=== PATIENT | female | born 1935 | race Asian ===

== ENCOUNTER 2021-04-11 11:11 | Observation (INO) ==
[2021-04-11 12:10] LABS: Hematocrit 40 % (35-47); Hemoglobin 13.6 g/dL (12.0-16.0); Mean Corpuscular HGB Conc 34 g/dL (31-36); Mean Corpuscular Hemoglobin 32 pg (27-31); Mean Corpuscular Volume 95 fL (80-97); Mean Platelet Volume 7.8 fL (7.4-10.4); Platelet Count 249 10^3/uL (150-450); Red Blood Count 4.23 10^6 /uL (3.70-4.87); Red Cell Distribution Width 13 % (10-15); White Blood Count 12.7 10^3/uL (3.5-10.8)
[2021-04-11 12:16] LABS: ABS Basophils 0.1 10^3/ul (0-0.2); ABS Eosinophils 0.1 10^3/ul (0-0.6); ABS Lymphocytes 1.9 10^3/ul (1.0-4.8); ABS Monocytes 1.6 10^3/ul (0-0.8); ABS Neutrophils 9.1 10^3/ul (1.5-7.7); Eosinophil % 0.7 %; Lymphocyte % 14.9 %
[2021-04-11 12:19] LABS: Albumin 3.8 g/dL (3.2-5.2); Anion Gap 8 mmol/L (2-11); CO2 Carbon Dioxide 24 mmol/L (22-32); Calcium 9.6 mg/dL (8.6-10.3); Chloride 104 mmol/L (101-111); Potassium 4.3 mmol/L (3.5-5.0); Sodium 136 mmol/L (135-145)
[2021-04-11 12:24] LABS: ALT 11 U/L (7-52); AST 16 U/L (13-39); Albumin/Globulin Ratio 1.1 (1-3); Alkaline Phosphatase 123 U/L (35-149); Blood Urea Nitrogen 22 mg/dL (6-24); Globulin 3.6 g/dL (2-4); Glucose 207 mg/dL (70-100); Total Protein 7.4 g/dL (6.4-8.9); eGFR CKD-EPI 50.4 (>60)
[2021-04-11 13:31] LABS: Alcohol, S < 13 mg/dL (<13)
[2021-04-11 13:47] LABS: TSH Ultra Thyroid Stim Horm 1.33 mcIU/mL (0.34-5.60)
[2021-04-11 14:05] LABS: Urine Appearance Cloudy; Urine Bilirubin Negative (Negative); Urine Blood Negative (Negative); Urine Color Yellow; Urine Glucose Negative (Negative); Urine Ketones Negative (Negative); Urine Nitrite Negative (Negative); Urine Protein Negative (Negative); Urine Urobilinogen Negative (Negative)
[2021-04-11] MEDS: Potassium Chlor 10 meq TAB PO SCH (16:42)
[2021-04-11] MEDS: Enoxaparin 40 MG/0.4 ML SYR SUBCUT SCH (18:21)
[2021-04-11] MEDS: Lactated Ringers 1000 ml BAG 1,000 ML IV ONE (19:06)
[2021-04-12 04:22] LABS: Hematocrit 37 % (35-47); Hemoglobin 12.4 g/dL (12.0-16.0); Mean Corpuscular HGB Conc 34 g/dL (31-36); Mean Corpuscular Hemoglobin 32 pg (27-31); Mean Corpuscular Volume 95 fL (80-97); Platelet Count 252 10^3/uL (150-450); Red Blood Count 3.92 10^6 /uL (3.70-4.87); Red Cell Distribution Width 13 % (10-15); White Blood Count 12.1 10^3/uL (3.5-10.8)
[2021-04-12 04:29] LABS: ABS Basophils 0.1 10^3/ul (0-0.2); ABS Eosinophils 0.3 10^3/ul (0-0.6); ABS Lymphocytes 2.8 10^3/ul (1.0-4.8); ABS Monocytes 1.8 10^3/ul (0-0.8); ABS Neutrophils 7.1 10^3/ul (1.5-7.7); Eosinophil % 2.3 %
[2021-04-12 04:41] LABS: HDL Cholesterol 33.2 mg/dL; Magnesium 1.8 mg/dL (1.9-2.7); Potassium 3.8 mmol/L (3.5-5.0)
[2021-04-12] MEDS ORDERED: Magnesium Sulfate IV 1GM/100ML 1 GM/100 ML BAG IV ONE (09:00)
[2021-04-12] MEDS ORDERED: Senna TAB 8.6 mg TAB PO ONE (10:08)
[2021-04-12] MEDS ORDERED: Polyethylene Glycol 3350 17 GM PACKET PO PRN (10:08)
[2021-04-12 10:09] VITALS: BP 111/67
[2021-04-12] MEDS ORDERED: Senna TAB 8.6 mg TAB PO PRN (10:09)
[2021-04-12] MEDS: Potassium Chlor 10 meq TAB PO SCH (10:15)
[2021-04-12] MEDS ORDERED: Lactated Ringers 500 ml BAG 500 ML IV SCH (11:00)
[2021-04-12] MEDS ORDERED: Polyethylene Glycol 3350 17 GM PACKET PO SCH (11:00)
[2021-04-12] MEDS ORDERED: Cyanocobalamin INJ 1,000 MCG/ML VIAL 1 ML VIAL IM ONE (11:24)
[2021-04-12] MEDS: Lactated Ringers 1000 ml BAG 1,000 ML IV ONE (13:34)
[2021-04-12] MEDS: Enoxaparin 40 MG/0.4 ML SYR SUBCUT SCH (15:25)
== END 2021-04-12 17:15 | disposition home or self-care (01) ==
LOC: ED 11:11 → EDHOLD 11:11 → MEDTELE 16:52
PROVIDERS: ADMIT Hospitalist; ATTEND Hospitalist

== ENCOUNTER 2021-04-14 08:31 | Observation (INO) ==
[2021-04-14] MEDS ORDERED: Lactated Ringers 1000 ml BAG IV.FLUID IV ONE (09:27)
[2021-04-14 10:13] LABS: Hematocrit 36 % (35-47); Hemoglobin 11.7 g/dL (12.0-16.0); Mean Corpuscular HGB Conc 33 g/dL (31-36); Mean Corpuscular Hemoglobin 31 pg (27-31); Mean Corpuscular Volume 96 fL (80-97); Platelet Count 255 10^3/uL (150-450); Red Blood Count 3.73 10^6 /uL (3.70-4.87); Red Cell Distribution Width 13 % (10-15); White Blood Count 10.9 10^3/uL (3.5-10.8)
[2021-04-14 10:30] LABS: Activated Partial Thrombo Time 29.7 seconds (26.0-38.0); INR 1.2 (0.86-1.15)
[2021-04-14 10:38] LABS: Albumin 3.2 g/dL (3.2-5.2); Calcium 8.2 mg/dL (8.6-10.3); Globulin 3.1 g/dL (2-4); Potassium 3.9 mmol/L (3.5-5.0); Total Protein 6.3 g/dL (6.4-8.9); eGFR CKD-EPI 55.2 (>60)
[2021-04-14 10:40] LABS: ABS Basophils 0.1 10^3/ul (0-0.2); ABS Eosinophils 0.3 10^3/ul (0-0.6); ABS Lymphocytes 1.5 10^3/ul (1.0-4.8); ABS Monocytes 1.9 10^3/ul (0-0.8); ABS Neutrophils 7.2 10^3/ul (1.5-7.7); Eosinophil % 2.7 %; Lymphocyte % 13.7 %; Nucleated Red Blood Cells % 0.1
[2021-04-14 12:09] LABS: Urine Appearance Clear; Urine Bilirubin Negative (Negative); Urine Blood Negative (Negative); Urine Color Yellow; Urine Glucose Negative (Negative); Urine Ketones Negative (Negative); Urine Nitrite Negative (Negative); Urine Protein Negative (Negative); Urine Specific Gravity 1.006 (1.002-1.030); Urine Urobilinogen Positive (Negative)
[2021-04-14] MEDS ORDERED: Enoxaparin 40 MG/0.4 ML SYR SUBCUT SCH (13:00)
[2021-04-14 13:38] LABS: TSH Ultra Thyroid Stim Horm 1.55 mcIU/mL (0.34-5.60)
[2021-04-14] MEDS ORDERED: Lactated Ringers 1000 ml BAG 1,000 ML IV SCH (15:00)
[2021-04-14] MEDS: Heparin 5000 UNITS/ML 1 mL VIAL SUBCUT SCH (15:27)
[2021-04-14] MEDS: Lactated Ringers 1000 ml BAG 1,000 ML IV SCH (19:47)
[2021-04-15] MEDS: Heparin 5000 UNITS/ML 1 mL VIAL SUBCUT SCH ×3 (01:19→23:43)
[2021-04-15 07:57] LABS: ABS Basophils 0.1 10^3/ul (0-0.2); ABS Eosinophils 0.3 10^3/ul (0-0.6); ABS Lymphocytes 1.9 10^3/ul (1.0-4.8); ABS Monocytes 1.3 10^3/ul (0-0.8); ABS Neutrophils 5.5 10^3/ul (1.5-7.7); Eosinophil % 3.8 %; Hematocrit 32 % (35-47); Hemoglobin 10.8 g/dL (12.0-16.0); Lymphocyte % 20.9 %; Mean Corpuscular HGB Conc 33 g/dL (31-36); Mean Corpuscular Hemoglobin 32 pg (27-31); Mean Corpuscular Volume 95 fL (80-97); Nucleated Red Blood Cells % 0.1; Platelet Count 270 10^3/uL (150-450); Red Blood Count 3.39 10^6 /uL (3.70-4.87); Red Cell Distribution Width 12 % (10-15); White Blood Count 9.2 10^3/uL (3.5-10.8)
[2021-04-15 08:14] LABS: Blood Urea Nitrogen 11 mg/dL (6-24); CO2 Carbon Dioxide 20 mmol/L (22-32); Calcium 7.1 mg/dL (8.6-10.3); Chloride 110 mmol/L (101-111); Glucose 65 mg/dL (70-100); Sodium 138 mmol/L (135-145); eGFR CKD-EPI 90.1 (>60)
[2021-04-15 09:28] LABS: Anion Gap 8 mmol/L (2-11)
[2021-04-15] MEDS ORDERED: Perflutren Lipid Microsphere 3 ML VIAL ONE (10:04)
[2021-04-15] MEDS: Lactated Ringers 1000 ml BAG 1,000 ML IV SCH (11:47)
[2021-04-15 13:11] LABS: Potassium Redraw 3.6 mmol/L (3.5-5.0)
[2021-04-15 21:11] LABS: C Reactive Protein 83.23 mg/L (<8.01)
[2021-04-16 05:28] LABS: ABS Basophils 0.1 10^3/ul (0-0.2); ABS Eosinophils 0.3 10^3/ul (0-0.6); ABS Lymphocytes 1.9 10^3/ul (1.0-4.8); ABS Monocytes 1.5 10^3/ul (0-0.8); ABS Neutrophils 6.8 10^3/ul (1.5-7.7); Hematocrit 34 % (35-47); Hemoglobin 11.6 g/dL (12.0-16.0); Mean Corpuscular HGB Conc 34 g/dL (31-36); Mean Corpuscular Hemoglobin 32 pg (27-31); Mean Corpuscular Volume 94 fL (80-97); Mean Platelet Volume 7.9 fL (7.4-10.4); Platelet Count 329 10^3/uL (150-450); Red Blood Count 3.59 10^6 /uL (3.70-4.87); Red Cell Distribution Width 12 % (10-15); White Blood Count 10.5 10^3/uL (3.5-10.8)
[2021-04-16 05:39] LABS: Calcium 8.8 mg/dL (8.6-10.3); Magnesium 1.9 mg/dL (1.9-2.7); Potassium 3.6 mmol/L (3.5-5.0)
[2021-04-16 05:45] LABS: eGFR CKD-EPI 77.7 (>60)
[2021-04-16 11:05] VITALS: BP 116/70
[2021-04-16] MEDS: Heparin 5000 UNITS/ML 1 mL VIAL SUBCUT SCH (12:06)
== END 2021-04-16 13:45 | disposition home or self-care (01) ==
LOC: EDHOLD 08:31 → ED 08:31 → EDHOLD 04-15 11:20 → MEDTELE 04-15 11:30
PROVIDERS: ADMIT Hospitalist; ATTEND Hospitalist

== ENCOUNTER 2024-04-28 09:17 | Observation (INO) ==
[2024-04-28 09:56] LABS: ABS Basophils 0.1 10^3/uL (0.0-0.1); ABS Eosinophils 0.4 10^3/uL (0.0-0.5); ABS Lymphocytes 2.1 10^3/uL (1.0-4.8); ABS Monocytes 1.4 10^3/uL (0.0-0.9); ABS Neutrophils 7.7 10^3/uL (1.5-7.6); Eosinophil % 3.2 %; Hematocrit 42.8 % (35-45); Hemoglobin 14.2 g/dL (11.5-14.3); Lymphocyte % 18.3 %; Mean Corpuscular Hemoglobin 32.4 pg (27-33); Mean Corpuscular Hgb Conc 33.2 g/dL (31-36); Mean Corpuscular Volume 97.4 fL (80-97); Mean Platelet Volume 8.1 fL (7.5-11.2); Platelet Count 260 10^3/uL (150-450); Red Cell Distribution Width 13.1 % (12-17); White Blood Count 11.7 10^3/uL (3.8-11.8)
[2024-04-28] MEDS: Lactated Ringers 1000 ml BAG 1,000 ML IV ONE (10:02)
[2024-04-28 10:16] LABS: Urine Appearance Extra Turbid; Urine Bilirubin Negative (Negative); Urine Blood 2+ (Negative); Urine Glucose Negative (Negative); Urine Ketones Negative (Negative); Urine Nitrite 2+ (Negative); Urine Protein 1+ (>=30 mg/dL) (Negative); Urine Urobilinogen 1+ (Negative)
[2024-04-28 10:19] LABS: Urine Bacteria 1+ /HPF (Absent); Urine Color Dark-Yellow; Urine Red Blood Cell 3+(>10/hpf) /HPF (0-Trace); Urine White Blood Cell 3+(>20/hpf) /HPF (0-Trace)
[2024-04-28 10:21] LABS: High Sens Troponin Baseline 3 pg/mL (<15)
[2024-04-28 11:03] LABS: ALT 40 U/L (7-52); Albumin 3.8 g/dL (3.5-5.7); Albumin/Globulin Ratio 1.2 (1-3); Alkaline Phosphatase 127 U/L (35-149); Anion Gap 9 mmol/L (2-16); Blood Urea Nitrogen 20 mg/dL (6-24); C Reactive Protein 22.15 mg/L (<8.01); CO2 Carbon Dioxide 24 mmol/L (22-32); Calcium 8.6 mg/dL (8.6-10.3); Chloride 102 mmol/L (101-111); Globulin 3.3 g/dL (2-4); Glucose 138 mg/dL (70-100); Sodium 135 mmol/L (135-145); Total Bilirubin 1.1 mg/dL (0.2-1.0); Total Protein 7.1 g/dL (6.4-8.9); eGFR CKD-EPI 54.9 (>60)
[2024-04-28 11:38] LABS: Activated Partial Thrombo Time 31.2 seconds (26.0-38.0); INR 1.04 (0.85-1.14)
[2024-04-28 12:38] LABS: Potassium Redraw 4.1 mmol/L (3.5-5.0)
[2024-04-28] MEDS: Iodixanol 320 (CONTRAST) 100 ML SDV IV ONE (12:40)
[2024-04-28] MEDS: cefTRIAXone 2 gm/50 mL D5W 2 GM/50 ML BAG IV ONE (12:49)
[2024-04-28] MEDS: Lactated Ringers 1000 ml BAG 500 ML IV ONE (17:53)
[2024-04-28] MEDS: Enoxaparin 40 MG/0.4 ML SYR SUBCUT SCH (19:18)
[2024-04-28] MEDS: Senna TAB 8.6 mg TAB PO SCH (21:41)
[2024-04-29 06:18] LABS: ABS Eosinophils 0.5 10^3/uL (0.0-0.5); ABS Lymphocytes 1.9 10^3/uL (1.0-4.8); ABS Monocytes 0.9 10^3/uL (0.0-0.9); ABS Neutrophils 5.5 10^3/uL (1.5-7.6); Eosinophil % 5.6 %; Hematocrit 37.2 % (35-45); Hemoglobin 12.3 g/dL (11.5-14.3); Lymphocyte % 21.2 %; Mean Corpuscular Hemoglobin 32.2 pg (27-33); Mean Corpuscular Hgb Conc 33.2 g/dL (31-36); Mean Corpuscular Volume 97.1 fL (80-97); Mean Platelet Volume 8.1 fL (7.5-11.2); Platelet Count 242 10^3/uL (150-450); Red Blood Count 3.83 10^6/uL (3.63-4.92); Red Cell Distribution Width 12.8 % (12-17); White Blood Count 8.8 10^3/uL (3.8-11.8)
[2024-04-29 06:43] LABS: Calcium 8.4 mg/dL (8.6-10.3); Creatinine, Serum 0.83 mg/dL (0.51-0.95); eGFR CKD-EPI 68.6 (>60)
[2024-04-29] MEDS: cefTRIAXone 1 gm/50 mL D5W 1 GM/50 ML BAG IV SCH (13:46)
[2024-04-29 14:06] VITALS: BP 114/77
== END 2024-04-29 18:30 | disposition home or self-care (01) ==
LOC: EDHOLD 09:17 → ED 09:17 → MED 16:25
PROVIDERS: ADMIT Student in an Organized Health Care Education/Training Program; ATTEND Student in an Organized Health Care Education/Training Program